=== PATIENT | female | born 1990 | race Two or more races ===

== ENCOUNTER 2023-01-27 07:36 | Outpatient (CLI) | payer OTHER | END 2023-01-27 07:42 | disposition home or self-care (01) | LOC: NUCLEAR 07:36 | PROVIDERS: ATTEND Family Medicine | DX: E05.90 Thyrotoxicosis, unspecified without thyrotoxic crisis or storm (principal) ==

== ENCOUNTER 2023-06-13 09:44 | Outpatient (CLI) | payer OTHER | END 2023-06-13 09:46 | disposition home or self-care (01) | LOC: SONOGRAMA 09:44 | PROVIDERS: ATTEND Pathology Anatomic Pathology | DX: D34 Benign neoplasm of thyroid gland (principal); E07.89 Other specified disorders of thyroid; E04.1 Nontoxic single thyroid nodule ==